=== PATIENT | female | born 1990 | race Caucasian/White ===

== ENCOUNTER 2020-07-07 19:32 | Emergency (ER) | payer MEDICAID ==
[~2020-07-07] VITALS: Ht 170.2 cm; Wt 52.2 kg
[2020-07-07] MEDS ORDERED: OXYC5CAP18 PO (20:00)
[2020-07-07] MEDS ORDERED: IV NORMAL SALINE 1000 ML BAG IV ONE (20:15)
[2020-07-07] MEDS ORDERED: ONDANSETRON 4 MG/2 ML VIAL IV ONE (20:15)
[2020-07-07 20:39] LABS: BASOPHILS # (AUTO) 0.1 K/uL (0.0-8.0); BASOPHILS % (AUTO) 0.8 % (0.0-2.0); HEMATOCRIT 29.6 % (31.2-41.9); HEMOGLOBIN 10.2 g/dL (10.9-14.3); LYMPHOCYTES # (AUTO) 1.7 K/uL (20.0-40.0); LYMPHOCYTES % (AUTO) 24.7 % (20.5-51.5); MEAN CORPUSCULAR HEMOGLOBIN 28.1 uug (24.7-32.8); MEAN CORPUSCULAR HGB CONC 34 g/dL (32.3-35.6); MEAN CORPUSCULAR VOLUME 81.9 fL (75.5-95.3); MONOCYTES # (AUTO) 0.6 K/uL (2.0-10.0); NEUTROPHILS # (AUTO) 4.4 K/uL (1.8-8.9); NEUTROPHILS % (AUTO) 65.5 % (38.5-71.5); PLATELET COUNT (AUTO) 475 K/uL (179-408); RED BLOOD CELL COUNT(AUTO) 3.62 MIL/uL (3.63-4.92); WHITE BLOOD COUNT (AUTO) 6.7 K/uL (3.8-11.8)
[2020-07-07 20:45] LABS: CREATININE 1.7 mg/dL (0.6-1.3)
[2020-07-07 20:49] LABS: BILIRUBIN,DIRECT 0.3 mg/dL (0.0-0.2); BILIRUBIN,TOTAL 0.7 mg/dL (0.2-1.0)
[2020-07-07 20:50] LABS: POTASSIUM 2.6 mmol/L (3.5-5.1)
--- NOTE | 2020-07-07 20:50 | NUR ---
optics test technician Parag called to notify potassium for patient is 2.6. MD Flower made aware. Pending orders at this time.
[2020-07-07] MEDS ORDERED: ONDANSETRON 4 MG/2 ML VIAL ONE (20:59)
[2020-07-07] MEDS ORDERED: POTASSIUM BICARBONATE/CIT AC 25 MEQ TABLET.EFF PO ONE (21:00)
[2020-07-07] MEDS: POTASSIUM CHLORIDE 50 ML IV SCH ×5 (21:05→23:55)
[2020-07-07] MEDS ORDERED: POTASSIUM BICARBONATE/CIT AC 25 MEQ TABLET.EFF ONE (21:06)
[2020-07-07] MEDS ORDERED: POTASSIUM CHLORIDE 200 ML ONE (21:06)
--- NOTE | 2020-07-07 21:20 | NUR ---
medical technologist generalist in room to do ultrasound on patient.
[2020-07-07 21:28] LABS: MAGNESIUM 2.1 mg/dL (1.8-2.4)
[2020-07-07 21:36] LABS: IRON, SERUM 20 ug/dL (50-175)
--- NOTE | 2020-07-07 21:47 | NUR ---
Father of patient arrived. Patient stated she was okay with her father visiting. Father at bedside.
--- NOTE | 2020-07-07 22:10 | NUR ---
While starting new saline bolus and 2nd bag of potassium, patient requested to change into a gown and use the restroom. Drips were clamped, patient given a cup to urine in for urine sample, and given a gown to change in. Patient ambulates with steady gait.
[2020-07-07] MEDS: IV NORMAL SALINE 1000 ML BAG IV ONE ×2 (22:30→22:42)
[2020-07-07 22:37] LABS: *BLOOD, URINE NEGATIVE (NEGATIVE); *CLARITY,URINE CLEAR (CLEAR); *COLOR,URINE DARK YELLOW (YELLOW); *KETONES,URINE NEGATIVE (NEGATIVE); LEUKOCYTE ESTERASE ,URINE 1+ (NEGATIVE); NITRITE, URINE NEGATIVE (NEGATIVE); PH,URINE 7.5 (5.0-8.0); UGLUCOSE NEGATIVE (NEGATIVE)
[2020-07-07 22:52] LABS: *AMPHETAMINE, URINE POSITIVE (NEGATIVE); *BILIRUBIN,URIN 1+ (NEGATIVE); *CANNABINOID, URINE NEGATIVE (NEGATIVE); *COCCAINE, URINE NEGATIVE (NEGATIVE); *OPIATE, URINE NEGATIVE (NEGATIVE); *PHENCYCLIDINE SCREEN,URINE NEGATIVE (NEGATIVE)
[2020-07-07 22:53] LABS: RBC,URINE 0-3 /HPF (0-3); WBC,URINE 20-50 /HPF (0-3)
[2020-07-07 22:54] LABS: BACTERIA,URINE FEW /HPF (NONE SEEN); SQUAMOUS EPITHELIAL CELL,UR FEW /HPF (NONE SEEN); URINE AMORPHOUS PHOSPHATES FEW /HPF
--- NOTE | 2020-07-07 23:08 | NUR ---
Apoorva, an credit review analyst from [facility] requested starting and current vitals on the patient. The vital signs were given. She states that a doctor will call and follow up on the patient.
--- NOTE | 2020-07-07 23:12 | NUR ---
Dr. Key from [facility] called to follow up on patient. Connected to MD Flower.
[2020-07-07] MEDS ORDERED: CEFTRIAXONE 1 G in IV DEXTROSE 5% 50 ML IV ONE (23:15)
--- NOTE | 2020-07-07 23:30 | NUR ---
Patient's father brought food for the patient to eat. Patient is able to eat and tolerate food intake. OK per MD Flower.
--- NOTE | 2020-07-07 23:46 | NUR ---
flight readiness technician called from lab to notify that patient's COVID-AG test is negative.
[2020-07-07] MEDS ORDERED: CEFTRIAXONE /D5W 50ML IVPB **ER PYXIS IV ONE (23:55)
--- NOTE | 2020-07-08 00:05 | NUR ---
Patient appearing tachycardic on monitor, MD Flower made aware.
--- NOTE | 2020-07-08 00:13 | NUR ---
Dr. Key from [place] called, call transferred to MD Flower.
[2020-07-08] MEDS: POTASSIUM CHLORIDE 50 ML IV SCH ×2 (00:31)
--- NOTE | 2020-07-08 00:43 | NUR ---
Ronda from [facility] called back with transfer information. Patient will be transfered to [facility] Labor and Delivery room 5. Accepting MD is Tommie Herrera. Patient will be picked up by [facility] with an ETA 0130.
[2020-07-08] MEDS ORDERED: MORPHINE SULFATE 4 MG/1 ML DISP.SYRIN IV ONE (01:00)
--- NOTE | 2020-07-08 01:00 | NUR ---
Patient is sleeping, eyes closed no acute distress noted. No nausea or vomiting at this time.
[2020-07-08] MEDS: MAGNESIUM SULFATE/D5W 100 ML IV SCH ×3 (01:15→02:25)
[2020-07-08] MEDS ORDERED: MAGNESIUM SULFATE/D5W 100 ML ONE ×2 (01:18→02:25)
[2020-07-08] MEDS ORDERED: MORPHINE SULFATE 4 MG/1 ML DISP.SYRIN ONE (01:18)
--- NOTE | 2020-07-08 01:34 | NUR ---
Report given to WILBER Lees at [facility] in L & D department.
--- NOTE | 2020-07-08 02:00 | NUR ---
[facility] arrived to receive report and prepare the patient for transport. RN Lea received report. 2nd bag of 1g gram of magnesium sulfate endorsed to her.
--- NOTE | 2020-07-08 02:00 | NUR ---
Nick dodd in [facility] - 07/08/20 at 0221 by KARINA [facility] arrived to receive report and prepare the patient for transport.
--- NOTE | 2020-07-08 02:15 | NUR ---
1st bag 1g of magnesium sulfate finished infusing. 2nd bag of 1g of magnesium sulfate endorsed to CCT RN.
--- NOTE | 2020-07-08 02:28 | NUR ---
Patient began getting nauseous and vomiting upon being loaded to [facility] unit MD Ching ventura notified. Stated to give patient 10mg of IV compazine.
[2020-07-08] MEDS ORDERED: PROCHLORPERAZINE EDISYLATE 10 MG/2 ML VIAL IV STA (02:30)
[2020-07-08] MEDS ORDERED: PROCHLORPERAZINE EDISYLATE 10 MG/2 ML VIAL ONE (02:38)
--- NOTE | 2020-07-08 02:40 | NUR ---
Patient Tranfers to outside Facility. Physician: Dr. Mcrae Location: [facility] Labor and Delivery; Room 5
== END 2020-07-08 02:40 | disposition short-term general hospital (02) ==
LOC: ER 19:32
DX: O21.1 Hyperemesis gravidarum with metabolic disturbance (principal); O98.412 Viral hepatitis complicating pregnancy, second trimester; B19.9 Unspecified viral hepatitis without hepatic coma; O25.12 Malnutrition in pregnancy, second trimester; O16.2 Unspecified maternal hypertension, second trimester; O99.322 Drug use complicating pregnancy, second trimester; F15.13 Other stimulant abuse with withdrawal; Z3A.27 27 weeks gestation of pregnancy; F11.93 Opioid use, unspecified with withdrawal; O99.012 Anemia complicating pregnancy, second trimester; D50.9 Iron deficiency anemia, unspecified; F63.89 Other impulse disorders; Z20.822 Contact with and (suspected) exposure to COVID-19
CPT/HCPCS: 36415; 76705; 76856; 80048; 80076; 80307; 81001; 82607; 83550; 83690; 83735; 84702; 85025; 86705; 86709; 86803; 87086; 87426; 96365; 96366 ×2; 96368; 96375 ×2; 99285; J0696; J0780; J2405; J3475 ×2; J3480; J2270; J7030

== ENCOUNTER 2020-12-12 09:14 | Emergency (ER) | payer MEDICAID ==
[~2020-12-12] VITALS: Ht 170.2 cm; Wt 44.5 kg
[~2020-12-12 09:14] MED LIST: OXYC5CAP18 PO
--- NOTE | 2020-12-12 09:30 | NUR ---
at bedside for assessment
[2020-12-12] MEDS ORDERED: IV NS 1000 ML 1,000 ML IV ONE ×2 (09:45→12:15)
--- NOTE | 2020-12-12 10:00 | NUR ---
Patient right arm is swollen and red, patient states she has a history if IV drug use and has recently fallen on that arm
--- NOTE | 2020-12-12 10:31 | NUR ---
IV place in left forearm
[2020-12-12 10:38] LABS: HEMATOCRIT 35.2 % (31.2-41.9); MEAN CORPUSCULAR HEMOGLOBIN 25.8 uug (24.7-32.8); MEAN CORPUSCULAR VOLUME 79.7 fL (75.5-95.3); PLATELET COUNT (AUTO) 366 K/uL (179-408)
[2020-12-12 11:04] LABS: CARBON DIOXIDE 28 mmol/L (21-32); CHLORIDE 90 mmol/L (98-107); CREATININE 1.2 mg/dL (0.6-1.3); GLUCOSE 123 mg/dL (74-106); POTASSIUM 3.7 mmol/L (3.5-5.1); UREA NITROGEN, BLOOD 34 mg/dL (7-18)
[2020-12-12 11:10] LABS: ALANINE AMINOTRANSFERASE 46 U/L (14-59); ALKALINE PHOSPHATASE 137 U/L (50-136); ASPARTATE AMINOTRANSFERASE 68 U/L (15-37); BILIRUBIN,TOTAL 1.5 mg/dL (0.2-1.0); TOTAL PROTEIN, SERUM 7.7 g/dL (6.4-8.2)
[2020-12-12 11:12] LABS: BAND % (MANUAL) 7 % (0-10); LYMPHOCYTES % (MANUAL) 10 % (20-40); MONOCYTES % (MANUAL) 4 % (2-10); NEUTROPHILS % (MANUAL) 79 % (42-75)
[2020-12-12] MEDS ORDERED: ACETAMINOPHEN ES 500 MG TABLET ONE (11:57)
[2020-12-12] MEDS ORDERED: CEFTRIAXONE 1 G in IV DEXTROSE 5% 50 ML IV ONE (12:15)
[2020-12-12] MEDS ORDERED: CEFTRIAXONE /D5W 50ML IVPB **ER PYXIS IV ONE (12:26)
--- NOTE | 2020-12-12 13:42 | NUR ---
Patient tansferred to [facility] per insurance, no signs of acute distress, 124/73, 120 HR, 98% on room air, picked up by [facility] ([facility]), report given to Slick MERINO from ER
[2020-12-12 14:07] VITALS: BP 128/79
== END 2020-12-12 13:30 | disposition short-term general hospital (02) ==
LOC: ER 09:14
DX: L03.113 Cellulitis of right upper limb (principal); E87.1 Hypo-osmolality and hyponatremia; R00.0 Tachycardia, unspecified; G89.29 Other chronic pain; M54.50 Low back pain, unspecified; K21.9 Gastro-esophageal reflux disease without esophagitis; Z91.81 History of falling; Z88.8 Allergy status to other drugs, medicaments and biological substances; Z86.19 Personal history of other infectious and parasitic diseases
CPT/HCPCS: 36415; 73060; 73080; 73090; 80053; 83605; 84702; 85007; 85025; 85610; 87040; 87806; 93005; 93971; 96365; 99285; J0696; 70030-TC; 87077; A4663; A9150; J7030